=== PATIENT | female | born 1950 | race Caucasian/White ===

== ENCOUNTER → 2019-08-31 12:04 | Outpatient (CLI) | payer MEDICARE, BC ==
[2011-11-19 13:25] VITALS: BMI 26.9
== END | disposition home or self-care (01) ==
LOC: D.US 12:04
PROVIDERS: ATTEND Internal Medicine Cardiovascular Disease
DX: R09.89 Other specified symptoms and signs involving the circulatory and respiratory systems (principal); I25.10 Atherosclerotic heart disease of native coronary artery without angina pectoris